=== PATIENT | male | born 1945 | race Caucasian/White ===

== ENCOUNTER 2016-07-17 07:12 | Outpatient (CLI) | payer MEDICARE, OTHER ==
[2016-07-17 08:00] LABS: ALT (SGPT) 11 U/L (0-55); AST (SGOT) 15 U/L (5-34); Albumin 4.1 g/dL (3.4-4.8); Alkaline Phosphatase 63 U/L (40-150); Anion Gap 13 mmol/L (10-20); BUN (Urea Nitrogen) 28 mg/dL (8.4-25.7); Bilirubin, Total 0.9 mg/dL (0.2-1.2); Calc. Creatinine Clearance 0 mL/min (70-130); Calcium 9.1 mg/dL (7.8-10.44); Carbon Dioxide 24 mmol/L (23-31); Cardiac Risk 2.9 (Less than 4.5); Chloride 110 mmol/L (98-107); Cholesterol 118 mg/dL (< 200 Desired); Estimated GFR-MDRD 48; Globulin 2.5 g/dL (2.4-3.5); Glucose 98 mg/dL (83-110); HDL Cholesterol 41 mg/dL (>60 Neg Risk); LDL Cholesterol, Calculated 67 mg/dL; Potassium 4.1 mmol/L (3.5-5.1); Protein, Total 6.6 g/dL (5.8-8.1); Sodium 143 mmol/L (136-145); Triglycerides 51 mg/dL (Less than 150)
== END 2016-07-17 07:13 | disposition home or self-care (01) ==
LOC: BURLAB 07:12
PROVIDERS: ATTEND Internal Medicine
DX: E78.5 Hyperlipidemia, unspecified (principal)
CPT/HCPCS: 36415; 80053; 80061

== ENCOUNTER 2016-12-13 07:16 | Outpatient (CLI) | payer MEDICARE, OTHER ==
[2016-12-13 08:30] LABS: ALT (SGPT) 14 U/L (8-55); AST (SGOT) 14 U/L (5-34); Albumin 4.2 g/dL (3.4-4.8); Alkaline Phosphatase 60 U/L (40-150); Anion Gap 12 mmol/L (10-20); BUN (Urea Nitrogen) 25 mg/dL (8.4-25.7); Calc. Creatinine Clearance 0 mL/min (70-130); Calcium 9.3 mg/dL (7.8-10.44); Carbon Dioxide 27 mmol/L (23-31); Chloride 108 mmol/L (98-107); Estimated GFR-MDRD 42; Globulin 2.5 g/dL (2.4-3.5); Glucose 96 mg/dL (83-110); Potassium 3.9 mmol/L (3.5-5.1); Protein, Total 6.7 g/dL (5.8-8.1); Sodium 143 mmol/L (136-145)
== END 2016-12-13 07:17 | disposition home or self-care (01) ==
LOC: BURLAB 07:16
PROVIDERS: ATTEND Internal Medicine
DX: E78.5 Hyperlipidemia, unspecified (principal)
CPT/HCPCS: 36415; 80053

== ENCOUNTER 2019-12-07 13:59 | Outpatient (CLI) | payer MEDICARE, OTHER ==
[2019-12-07 15:11] LABS: ALT (SGPT) 13 U/L (8-55); AST (SGOT) 11 U/L (5-34); Alkaline Phosphatase 55 U/L (40-110); Anion Gap 14 mmol/L (10-20); BUN (Urea Nitrogen) 15 mg/dL (8.4-25.7); Bilirubin, Total 0.9 mg/dL (0.2-1.2); Calc. Creatinine Clearance 0 mL/min (70-130); Calcium 8.1 mg/dL (7.8-10.44); Carbon Dioxide 25 mmol/L (23-31); Chloride 106 mmol/L (98-107); Estimated GFR-MDRD 46; Glucose 120 mg/dL (83-110); Potassium 3.6 mmol/L (3.5-5.1); Sodium 141 mmol/L (136-145)
[2019-12-07 15:24] LABS: #Lymphocytes 1.2 thou/uL (1.20-3.40); #Monocytes 0.3 thou/uL (0.11-0.59); #Neutrophils 3.4 thou/uL (1.40-6.50); %Basophils 0.6 % (0.0-1.0); %Eosinophils 0.3 % (0.0-10.0); %Lymphocytes 24.7 % (21.0-51.0); %Monocytes 6.2 % (0.0-10.0); %Neutrophils 68.2 % (42.0-75.0); Hemoglobin 13.4 g/dL (14.0-18.0); Mean Corpuscular HGB CONC 32.2 g/dL (32.0-36.0); Mean Corpuscular Hemoglobin 30.3 pg (27.0-31.0); Mean Corpuscular Volume 94.3 fL (78.0-98.0); Mean Platelet Volume 8.7 fL (7.4-10.4); Platelet Count 105 thou/uL (130-400); Platelet Morphology Comment PLT DECREASED ON SLIDE; RBC Distribution Width 12.2 % (11.5-14.5); Red Blood Cell (RBC) Count 4.43 mill/uL (4.70-6.10); White Blood Cell (WBC) Count 4.9 thou/uL (4.8-10.8)
[2019-12-07 15:25] LABS: MDiff Complete? YES; Manual Diff?? NO
--- NOTE | 2019-12-07 16:39 | RAD ---
CHEST TWO VIEWS: Date: 12-07-2019 Comparison: 11-17-15 FINDINGS: There is a rather large patchy opacity in the right upper lobe, somewhat ground glass like. An infilt rate seems probable, though an actual mass is not excluded. The left lung seems clear. There are no e ffusions. The heart is mildly enlarged, but there are no signs of congestion. IMPRESSION: Prominent patchy ground glass opacity in the right upper lobe. The initial presumption is that this i s an infiltrate and is infectious in nature. As such, Covid should be included in the differential di agnosis. Sequential follow up is needed to be sure that this resolves and is not, in fact, neoplastic in nature. Preliminary report transmitted to physician's office at approximately 1430. Follow up required. Code T POS: HOME
[2019-12-09 16:25] LABS: SARS-CoV-2 MS2 Positive; SARS-CoV-2 N Gene Negative; SARS-CoV-2 S Gene Negative; SARS-CoV-2 by NAA Not Detected (NotDetected); SARS-CoV-2 orf1ab Negative
== END 2019-12-07 14:00 | disposition home or self-care (01) ==
LOC: BURRAD 13:59
PROVIDERS: ATTEND Internal Medicine
DX: Z01.84 Encounter for antibody response examination (principal); R50.9 Fever, unspecified; R05 Cough; R91.8 Other nonspecific abnormal finding of lung field; Z20.828 Contact with and (suspected) exposure to other viral communicable diseases
CPT/HCPCS: 36415; 71046; 80053; 85025; 87635; U0003

== ENCOUNTER 2019-12-10 09:45 | Outpatient (CLI) | payer MEDICARE, OTHER ==
--- NOTE | 2019-12-10 10:22 | RAD ---
CHEST 2 VIEWS: INDICATION: History of dyspnea. COMPARISON: Prior exam dated 12/07/2019. FINDINGS: There is worsening bilateral pneumonia. There is mild cardiomegaly. No pleural effusion or pneumoth orax is evident. There is multilevel spondylosis of the thoracic spine. IMPRESSION: Worsening bilateral pneumonia. POS: BH
== END 2019-12-10 09:46 | disposition home or self-care (01) ==
LOC: BURRAD 09:45
PROVIDERS: ATTEND Internal Medicine
DX: R06.00 Dyspnea, unspecified (principal); J18.9 Pneumonia, unspecified organism
CPT/HCPCS: 71046

== ENCOUNTER 2020-09-02 07:45 | Outpatient (CLI) | payer MEDICARE, OTHER | END 2020-09-02 07:46 | disposition home or self-care (01) | LOC: BURRAD 07:45 | PROVIDERS: ATTEND Internal Medicine Cardiovascular Disease | DX: R07.9 Chest pain, unspecified (principal); R06.00 Dyspnea, unspecified; R91.8 Other nonspecific abnormal finding of lung field | CPT/HCPCS: 71046 ==

== ENCOUNTER 2021-04-27 12:36 | Outpatient (CLI) | payer MEDICARE, OTHER | END 2021-04-27 12:37 | disposition home or self-care (01) | LOC: BURCT 12:36 | PROVIDERS: ATTEND Anesthesiology Pain Medicine | DX: M51.16 Intervertebral disc disorders with radiculopathy, lumbar region (principal); M47.26 Other spondylosis with radiculopathy, lumbar region | CPT/HCPCS: 72131 ==

== ENCOUNTER 2021-09-08 19:53 | Emergency (ER) | payer MEDICARE, OTHER ==
[2021-09-08 20:39] LABS: #Basophils 0.1 thou/uL (0.0-0.2); #Eosinphils 0.1 thou/uL (0.0-0.7); #Monocytes 0.4 thou/uL (0.11-0.59); #Neutrophils 6.5 thou/uL (1.40-6.50); %Basophils 0.9 % (0.0-1.0); %Eosinophils 1.5 % (0.0-10.0); %Lymphocytes 12.5 % (21.0-51.0); %Neutrophils 80.1 % (42.0-75.0); Hemoglobin 15.2 g/dL (14.0-18.0); Mean Corpuscular HGB CONC 35.7 g/dL (32.0-36.0); Mean Corpuscular Hemoglobin 32.8 pg (27.0-31.0); Mean Corpuscular Volume 91.9 fL (78.0-98.0); Mean Platelet Volume 7.3 fL (7.4-10.4); Platelet Count 134 thou/uL (130-400); RBC Distribution Width 13.3 % (11.5-14.5); Red Blood Cell (RBC) Count 4.64 mill/uL (4.70-6.10); White Blood Cell (WBC) Count 8.1 thou/uL (4.8-10.8)
[2021-09-08 20:54] LABS: ALT (SGPT) 17 U/L (8-55); AST (SGOT) 12 U/L (5-34); Albumin 4.3 g/dL (3.4-4.8); Alkaline Phosphatase 71 U/L (40-110); Anion Gap 16 mmol/L (10-20); BUN (Urea Nitrogen) 20 mg/dL (8.4-25.7); Bilirubin, Total 1.2 mg/dL (0.2-1.2); Calc. Creatinine Clearance 0 mL/min (70-130); Calcium 9.2 mg/dL (7.8-10.44); Carbon Dioxide 25 mmol/L (23-31); Chloride 107 mmol/L (98-107); Globulin 3.1 g/dL (2.4-3.5); Glucose 145 mg/dL (83-110); Potassium 3.6 mmol/L (3.5-5.1); Protein, Total 7.4 g/dL (5.8-8.1); Sodium 144 mmol/L (136-145)
[2021-09-08 21:11] LABS: CKMB 1.7 ng/mL (0-6.6)
[2021-09-08] MEDS ORDERED: Aspirin Chewable 81 MG TAB ONE (21:11)
[2021-09-08] MEDS ORDERED: Furosemide 40 MG/4 ML VIAL ONE (22:35)
[2021-09-09 21:50] LABS: SARS-CoV-2 PCR by NAA Not Detected (NotDetected)
== END 2021-09-08 22:23 | disposition short-term general hospital (02) ==
LOC: BURERS 19:53
DX: I11.0 Hypertensive heart disease with heart failure (principal); I50.9 Heart failure, unspecified; R77.8 Other specified abnormalities of plasma proteins; I45.10 Unspecified right bundle-branch block; I25.10 Atherosclerotic heart disease of native coronary artery without angina pectoris; Z20.822 Contact with and (suspected) exposure to COVID-19; Z95.5 Presence of coronary angioplasty implant and graft
CPT/HCPCS: 71046; 80053; 82553; 83880; 84484; 85025; 93005; 94760; U0003; U0005; 96374; J1940